=== PATIENT | male | born 1995 | race African-American/Black ===

== ENCOUNTER → 2016-05-08 | Outpatient (CLI) | payer OTHER ==
--- NOTE | 2016-05-09 10:15 | DIAGNOSTIC IMAGING REPORT ---
MRI OF THE RIGHT KNEE WITHOUT CONTRAST CLINICAL HISTORY: Right knee pain. Effusion. COMPARISON STUDY: Right knee radiograph September 28, 2015 and MRI of the right knee September 28, 2015. TECHNIQUE: Utilizing a 1.5 Latia magnet and dedicated coil, multiplanar, multiecho imaging of the right knee was performed without intravenous or intraarticular contrast. FINDINGS: Alignment of the right knee is anatomic. Extensor mechanism is intact. There is no joint effusion. A bilobed popliteal cyst has increased in size since exam of September 28, 2015. The largest component measures 4.8 x 2.9 cm. The cruciate and collateral ligaments are intact. There is linear horizontal signal within the medial meniscus which does not definitively extend to articular surface. This is unchanged since prior exam. There is no convincing medial meniscal tear. This study is mildly compromised by motion artifact. The body and anterior horn of the lateral meniscus is truncated. There is mild chondrosis within the lateral compartment. No significant chondrosis within the medial or patellofemoral compartments is noted. IMPRESSION: 1. Intact cruciate and collateral ligaments. 2. Truncated body and anterior horn of the lateral meniscus. This is likely post surgical when correlating with prior exam of September 28, 2015 although a new meniscal tear would be difficult to exclude. 3. Mild chondrosis within the lateral compartment. 4. Interval increase in size of a bilobed popliteal cyst. Electronically signed by: Twan Lemons M.D. 05/09/2016 10:14 AM Dictated Date/Time: 05/08/2016 3:39 PM
== END | disposition home or self-care (01) ==
LOC: C.MRIBC 14:34
PROVIDERS: ATTEND Orthopaedic Surgery
DX: M25.461 Effusion, right knee (principal); M71.21 Synovial cyst of popliteal space [Baker], right knee; R93.7 Abnormal findings on diagnostic imaging of other parts of musculoskeletal system

== ENCOUNTER → 2017-04-15 | Outpatient (CLI) | payer OTHER ==
--- NOTE | 2017-04-15 21:14 | DIAGNOSTIC IMAGING REPORT ---
MRI CERVICAL WITHOUT CONTRAST CLINICAL HISTORY: Left-sided cervical pain. Left arm numbness. Left arm weakness. TECHNIQUE: Sagittal and axial T1, T2 and STIR images were obtained. COMPARISON STUDY: No previous studies for comparison. There are no suspicious areas of marrow replacement. No intrinsic cervical cord lesions are visualized. C2-3: There is no evidence of disc bulge or focal herniation. There is no spinal or foraminal stenosis. C3-4: There is no evidence of disc bulge or focal herniation. There is no spinal or foraminal stenosis. C4-5: There are no disc bulges or focal herniations. There is no spinal or foraminal stenosis. C5-6 :There are no disc bulges or focal herniations. There is no spinal or foraminal stenosis. C6-7: There is no evidence of disc bulge or focal herniation. There is no evidence of spinal or foraminal stenosis. C7-T1: There is no evidence of disc bulge or focal herniation. There is no evidence of spinal or foraminal stenosis. IMPRESSION:Normal MRI of the cervical spine. Electronically signed by: Antwan Toledo M.D. 04/15/2017 9:12 PM Dictated Date/Time: 04/15/2017 9:10 PM
== END | disposition home or self-care (01) ==
LOC: C.MRI 20:00
PROVIDERS: ATTEND Orthopaedic Surgery
DX: M54.12 Radiculopathy, cervical region (principal)

== ENCOUNTER → 2017-04-18 | Outpatient (CLI) | payer OTHER | END | disposition home or self-care (01) | LOC: C.RDSM 08:27 | PROVIDERS: ATTEND Family Medicine | DX: M54.12 Radiculopathy, cervical region (principal) ==

== ENCOUNTER 2017-06-24 18:58 | Emergency (ER) | payer OTHER ==
[~2017-06-24] VITALS: Ht 190.5 cm; Wt 114.3 kg
[2017-06-24 19:02] VITALS: TEMP 36.6; Ht 190.5 cm; Wt 114.3 kg
[2017-06-24] MEDS ORDERED: XYLOCAINE 1%/SOD BICARB 20 ML VIAL INFIL ONE (19:27)
[2017-06-24] MEDS ORDERED: NURSING VERBAL MED ORDER ONE ×2 (19:30→20:30)
--- NOTE | 2017-06-24 19:43 | DIAGNOSTIC IMAGING REPORT ---
Left index finger 3 views CLINICAL HISTORY: left index finger COMPARISON: None. DISCUSSION: There is a 1.5 mm chip/avulsion fracture arising from the volar base of the middle phalanx. This may be old. There is no dislocation. No additional fractures are visualized. There is an overlying bandage. There is also a corticated ossicle at the base of the proximal phalanx of the index finger. This is old or developmental. IMPRESSION: 1. Age-indeterminate 1.5 mm chip/avulsion fracture arising from the volar base of the middle phalanx 2. No evidence of dislocation Electronically signed by: Antwan Toledo M.D. 06/24/2017 7:42 PM Dictated Date/Time: 06/24/2017 7:40 PM
[2017-06-24] MEDS ORDERED: CEFAZOLIN IV 2,000 MG in SYRINGE 0 ML IV ONE (20:00)
[2017-06-24] MEDS ORDERED: KETOROLAC TROMETHAMINE 30 MG/ML VIAL ONE (20:16)
[2017-06-24] MEDS ORDERED: NORCO 5/325MG HOME PACK PO ONE (21:00)
[2017-06-24] MEDS ORDERED: CEPHALEXIN 500MG HOME PACK 1 EA BTL PO ONE (21:00)
[2017-06-24] MEDS ORDERED: MoRPHine SULFATE 10 MG/ML CARP/VIAL IV STA (21:02)
[2017-06-24] MEDS ORDERED: MoRPHine SULFATE 4 MG/ML 1 ML CARP\\VIAL ONE (21:07)
--- NOTE | 2017-06-24 22:40 | DIAGNOSTIC IMAGING REPORT ---
MRI THE RIGHT KNEE NO CONTRAST CLINICAL HISTORY: Left knee. Inability to straighten knee. COMPARISON STUDY: 05/08/2016 FINDINGS: The examination is limited from a technical standpoint. The patient was unable to straighten his knee. The patient with therefore not fit in the knee coil. The patient was scanned in the torso coil. The quadriceps and patellar tendons appear intact. The anterior and posterior cruciate ligaments appear intact. There are no areas of marrow edema to indicate occult fracture or bone bruise. The medial and lateral collateral ligaments appear intact. No tears of the medial meniscus are visualized. The lateral meniscus is markedly abnormal. A normal posterior horn is not visualized. A posterior horn tear with a possible flipped meniscus is suspected. Correlation with prior surgery is recommended. IMPRESSION: 1. Very difficult study to interpret given the flexed position of the knee, and the necessity CT scan of the torso coil 2. No evidence of cruciate or collateral ligament disruption 3. No evidence of meniscal tear 4. Markedly abnormal lateral meniscus. A normal posterior horn is not visualized. A posterior horn tear with a possible flipped meniscus is suspected. Correlation with prior surgery is recommended Electronically signed by: Antwan Toledo M.D. 06/24/2017 10:38 PM Dictated Date/Time: 06/24/2017 10:33 PM
[2017-06-24 22:52] VITALS: BP 118/72; PULSE 78; O2SAT 98
--- NOTE | 2017-06-25 00:32 | ORTHOPEDIC CONSULTATION ---
DATE OF CONSULTATION: 06/24/2017 Dr. Cunha contacted me that the patient had injured his right knee which is a locked knee and he also had injured his left index finger. This happened at football practice today. He actually had an open wound and what is believed to be an open dorsal PIP joint dislocation of the left index finger. He was wearing a glove. It was immediately reduced. He was then brought to the Emergency Room. Tetanus is up-to-date, he is given Ancef 2 grams IV, he weighs 240 pounds. There is no prior history of left hand injuries. He did have a prior right knee surgery. He has had several episodes of knee catching today and finally the knee completely locked and he cannot straighten it beyond 90 degrees. He has pain on the lateral side of the knee. PAST MEDICAL HISTORY: Negative. PAST SURGICAL HISTORY: Right knee surgery. MEDICATIONS: Adderall. ALLERGIES: None. 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 PHYSICAL EXAMINATION: Examination of the right knee reveals swelling. The knee can be flexed to about 100 degrees and straightened to about 85 degrees. There is pain on the lateral side of the knee. Examination of the left index finger indicates that there is an oblique laceration just proximal to the PIP joint flexion crease going from proximal ulnar to distal radial. The posture of the finger is in line with the others. He can flex the PIP and DIP. He can fully straighten the finger. The finger cannot be redislocated and the collateral ligaments are stable. He has full extension but can only bend the finger about 30-40% of normal. The laceration is about 1.5 cm in length. A verbal consent is obtained. The finger is anesthetized with approximately 10 mL of 1% lidocaine plain for digital block and field block. The whole hand is prepped with Betadine, sterile field is created and a finger tourniquet is applied. I extended the laceration to the skin crease at the radial apex and then zig-zagged it back to the midline over the proximal phalanx. I bluntly dissected in the midline, elevating a skin flap ulnarly based. I bluntly dissected deep in the midline and identified the rent in the flexure tendon sheath. There is no debris encountered. The superficial soft tissues are irrigated copiously with Betadine containing saline and then rinsed with saline, approximately 100 mL. I then identified the tendons, all 3 slips at this position were intact. He could bend the finger and the tendons could be seen. The tendons were pulled toward the ulnar aspect and deep to this the ruptured volar plate was identified. The volar plate was retracted proximally, the joint was identified, no contamination was noted, and another 100 mL of combined irrigation with Betadine lavage and sterile saline was given. The volar plate was placed back into its anatomical position and the extensor tendons were allowed to fall back into their position. The skin was then closed loosely for the traumatic injury and a little more tightly for the surgical incision which was 1.5 cm. I then used 4-0 nylon. Antibiotic ointment and nonadherent dressing, soft sterile dressing with a volar splint with the finger in slight flexion was then applied. IMPRESSION: 1. An open dorsal dislocation of the proximal interphalangeal joint. 2. Locked right knee. PLAN: Care is coordinated with Dr. Cunha. I ordered a [place] home pack, Keflex home pack. He was also given 30 mg of IV Toradol and 8 mg of IV morphine. I will obtain an MRI of the right knee due to the locked knee and the likely need for surgical intervention. He will follow up in the training room for wound care, can change his dressing tomorrow, begin active range of motion with faith taping, local wound care, antibiotics, pain medication. He will follow up in the training room. Elevate and ice. If there are any problems with pain, fever, swelling or any other problems or questions, to go to the training room or call the office. At the time of the evaluation, he had intact sensation and capillary refill less than 2 seconds in the involved index finger. Radiograph of the left index finger done prior to the procedure showed a chronic appearing ossicle at the base of the proximal phalanx and an age indeterminate probable acute avulsion injury off the volar base of the middle phalanx. The joint was concentrically reduced and there was no significant fracture noted.
== END 2017-06-24 22:55 | disposition home or self-care (01) ==
LOC: C.EDB 18:59 → C.EDD 22:55
DX: S63.281A Dislocation of proximal interphalangeal joint of left index finger, initial encounter (principal); S61.211A Laceration without foreign body of left index finger without damage to nail, initial encounter; M23.91 Unspecified internal derangement of right knee; Y93.61 Activity, american tackle football; Z79.899 Other long term (current) drug therapy